=== PATIENT | female | born 1985 | race Caucasian/White ===

== ENCOUNTER → 2017-05-15 | Outpatient (CLI) | payer OTHER | END | disposition home or self-care (01) | LOC: C.LABSPEC 17:58 | PROVIDERS: ATTEND Physician Assistant | DX: J02.9 Acute pharyngitis, unspecified (principal) ==

== ENCOUNTER 2017-05-29 16:52 | Emergency (ER) | payer OTHER ==
[~2017-05-29] VITALS: Ht 157.5 cm; Wt 136.2 kg
[2017-05-29 16:55] VITALS: TEMP 36.5; Ht 157.5 cm; Wt 136.2 kg
[2017-05-29] MEDS ORDERED: ONDANSETRON INJ 2 MG/ML 2 ML VIAL IV STA (17:32)
[2017-05-29] MEDS ORDERED: SODIUM CHLORIDE 0.9% 1000ML 1,000 ML IV STA (17:32)
[2017-05-29 17:39] VITALS: O2SAT 98
[2017-05-29] MEDS ORDERED: ESCI10TA17 PO (17:46)
[2017-05-29] MEDS ORDERED: FLUT0.15 (17:46)
[2017-05-29] MEDS ORDERED: CLIN1CAP51 PO (17:46)
[2017-05-29 18:01] LABS: HEMATOCRIT 41.1 % (37-47); MEAN CELL VOLUME 98.3 fL (80-100); MEAN CORPUSCULAR HEMOGLOBIN 33.5 pg (25-34); MEAN CORPUSCULAR HGB CONC 34.1 g/dl (32-36); MEAN PLATELET VOLUME 11.3 fL (7.4-10.4); PLATELET COUNT 296 K/uL (130-400); RED BLOOD COUNT 4.18 M/uL (4.2-5.4); WHITE BLOOD COUNT 18.35 K/uL (4.8-10.8)
[2017-05-29 18:21] LABS: ALT/SGPT 31 U/L (12-78); AST/SGOT 17 U/L (15-37); BLOOD UREA NITROGEN 16 mg/dl (7-18); CALCIUM 9.3 mg/dl (8.5-10.1); CARBON DIOXIDE 20 mmol/L (21-32); CHLORIDE 108 mmol/L (98-107); CREATININE 1.13 mg/dl (0.60-1.20); GLUCOSE 145 mg/dl (70-99); MAGNESIUM 1.9 mg/dl (1.8-2.4); POTASSIUM 3.3 mmol/L (3.5-5.1); SODIUM 142 mmol/L (136-145)
[2017-05-29 18:22] LABS: BASO % 0.1 %; BASO ABS # 0.01 K/uL (0-0.2); COMPLETE YES; ECHINOCYTES 1+; EOS % 0.5 %; IG% 1.1 %; LYMPH % 19.7 %; LYMPH ABS # 3.61 K/uL (1.2-3.4); MONO % 2.6 %
[2017-05-29 18:24] LABS: ALKALINE PHOSPHATASE 87 U/L (45-117); CKMB/CK RATIO 1.5 (0-3.0)
[2017-05-29 18:28] LABS: PREG INTERNAL NEGATIVE QC NEG CLEAR BACKGROUND; PREG INTERNAL POSITIVE QC POS CONTROL LINE
--- NOTE | 2017-05-29 18:44 | DIAGNOSTIC IMAGING REPORT ---
ABDOMEN 2VIEW W/PA CHEST RTN HISTORY: 31 years-old Female ABDOMINAL PAIN/GI acute generalized abdominal pain COMPARISON: None available TECHNIQUE: PA view of the chest with erect and supine views of the abdomen FINDINGS: Cardiomediastinal and hilar silhouettes are within normal limits. There is no pneumothorax, pleural effusion, focal airspace consolidation or overt pulmonary edema. The bones of the chest are grossly intact. There is no pneumoperitoneum on the upright projection. The bowel gas pattern is nonobstructive. No urolith. Probable phlebolith of the pelvis. IMPRESSION: 1. No acute cardiopulmonary process. 2. Nonobstructive bowel gas pattern. 3. No pneumoperitoneum. The above report was generated using voice recognition software. It may contain grammatical, syntax or spelling errors. Electronically signed by: William So M.D. 05/29/2017 6:42 PM Dictated Date/Time: 05/29/2017 6:41 PM
[2017-05-29] MEDS ORDERED: ONDA4TAB10 SL (19:22)
[2017-05-29] MEDS ORDERED: ONDANSETRON HOME PACK 4MG OD TAB PO ONE (19:30)
[2017-05-29 20:26] VITALS: BP 133/81; PULSE 91; O2SAT 97
--- NOTE | 2017-05-29 20:27 | EMERGENCY ROOM VISIT NOTE ---
History Report prepared by Paul: Ana Russell Under the Supervision of: Dr. Flash Calvin D.O. First contact with patient: 17:18 Chief Complaint: PALPITATIONS Stated Complaint: RAPID HEART RATE;FLUSH;NAUSEA Nursing Triage Summary: patient states she was at work and felt flushed nauseated and was hot and felt her heart palpatating. she states she vomited and has had diarrhea as well. patient is incontient of diarrhea while here. she conitnues to have nausea and generally doesn't feel well History of Present Illness The patient is a 31 year old female who presents to the Emergency Room with complaints of persistent palpitations starting this morning. The patient felt well when she woke up this morning. Before leaving to work, she started to feel a warm sensation over her chest and back that did not last long. On her way to work, she started feeling increasingly flushed and her heart rate increased. She felt very tired and weak. She had tingling down both her arms. Upon arriving at work, she had some dry heaving and diarrhea. She checked her blood pressure and found that it was 119/72. Her heart rate when down and she started to feel better. Around 1500, her symptoms started coming back. She also developed some chest tightness, but no chest pain. Upon arrival to the ED she vomited. She has had 2-3 episodes of diarrhea. She currently does not have any abdominal pain. She feels weak and has some SOB. She feels her heart rate is slowing down. She has never had these symptoms before. She denies any leg pain. 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 She denies any known sick contacts. She has a history of anxiety. She is being watched for high blood pressure. She is on Flonase for allergies. She notes that today was the first time she used Flonase with the [place]esuapro. She denies any history of blood clots. She denies any recent procedures or travel. Source of History: patient Onset: this morning Position: other (global) Quality: other (palpitations) Timing: other (persistent) Associated Symptoms: + SOB, + vomiting, + diarrhea, + fatigue, + weakness, No chest pain, No abdominal pain Note: Pt reports chest tightness. Pt denies leg pain. Review of Systems See HPI for pertinent positives & negatives. A total of 10 systems reviewed and were otherwise negative. Past Medical & Surgical Medical Problems: (1) Anxiety Family History No pertinent family history stated. Social History Smoking Status: Current Every Day Smoker Occupation Status: employed Current/Historical Medications Scheduled Clindamycin HCl (Clindamycin HCl), 1 CAP PO QID Escitalopram (Lexapro), 10 MG PO DAILY Ondasetron Odt (Zofran Odt), 4 MG SL Q6H Miscellaneous Medications Fluticasone Propionate (Nasal) (Flonase Allergy Relief) Allergies Coded Allergies: Amoxicillin (Unverified Allergy, Mild, facial swelling, 05/29/17) Clavulanic Acid (Unverified Allergy, Mild, facial swelling, 05/29/17) Physical Exam Vital Signs Date Time Temp Pulse Resp B/P (MAP) Pulse Ox O2 Delivery O2 Flow Rate FiO2 05/29/17 20:26 91 20 133/81 97 Room Air 05/29/17 19:00 93 20 138/93 96 Room Air 05/29/17 18:02 98 05/29/17 17:58 99 20 128/91 98 Room Air 05/29/17 17:39 98 Room Air 05/29/17 17:13 97 Room Air 05/29/17 16:55 36.5 140 26 115/63 94 Room Air Physical Exam GENERAL: Patient is awake, alert, somewhat anxious appearing but comfortable. EYES: The conjunctivae are clear. The pupils are round and reactive. EARS, NOSE, MOUTH AND THROAT: The nose is without any evidence of any deformity. Mucous membranes are moist tongue is midline NECK: The neck is nontender and supple. RESPIRATORY: Normal respiratory effort is noted there is no evidence of wheezing rhonchi or rales CARDIOVASCULAR: Tachycardic rate noted to auscultation. No definite murmur noted. GASTROINTESTINAL: The abdomen is soft. Bowel sounds are present in all quadrants. Abdomen is nontender MUSCULOSKELETAL/EXTREMITIES: There is no evidence of gross deformity full range of motion is noted in the hips and shoulders SKIN: There is no obvious evidence of any rash. There are no petechiae, pallor or cyanosis noted. NEUROLOGIC: Patient is awake alert and oriented x3 strength is symmetric patellar reflexes are 2+ bilaterally Medical Decision & Procedures ER Provider Diagnostic Interpretation: X-ray results as stated below per interpretation by me and the radiologist. ABDOMEN 2VIEW W/PA CHEST RTN HISTORY: 31 years-old Female ABDOMINAL PAIN/GI acute generalized abdominal pain COMPARISON: None available TECHNIQUE: PA view of the chest with erect and supine views of the abdomen FINDINGS: Cardiomediastinal and hilar silhouettes are within normal limits. There is no pneumothorax, pleural effusion, focal airspace consolidation or overt pulmonary edema. The bones of the chest are grossly intact. There is no pneumoperitoneum on the upright projection. The bowel gas pattern is nonobstructive. No urolith. Probable phlebolith of the pelvis. IMPRESSION: 1. No acute cardiopulmonary process. 2. Nonobstructive bowel gas pattern. 3. No pneumoperitoneum. The above report was generated using voice recognition software. It may contain grammatical, syntax or spelling errors. Electronically signed by: William So M.D. 05/29/2017 6:42 PM Dictated Date/Time: 05/29/2017 6:41 PM Laboratory Results 05/29/17 17:45 Red Blood Count 4.18, Mean Corpuscular Volume 98.3, Mean Corpuscular Hemoglobin 33.5, Mean Corpuscular Hemoglobin Concent 34.1, Mean Platelet Volume 11.3, Neutrophils (%) (Auto) 76.0, Lymphocytes (%) (Auto) 19.7, Monocytes (%) (Auto) 2.6, Eosinophils (%) (Auto) 0.5, Basophils (%) (Auto) 0.1, Neutrophils # (Auto) 13.96, Lymphocytes # (Auto) 3.61, Monocytes # (Auto) 0.47, Eosinophils # (Auto) 0.10, Basophils # (Auto) 0.01 05/29/17 17:45 Test 05/29/17 00:00 05/29/17 17:45 Urine Color YELLOW Urine Appearance CLOUDY (CLEAR) Urine pH 5.0 (4.5-7.5) Urine Specific Bryant 1.025 (1.000-1.030) Urine Protein 2+ (NEG) Urine Glucose (UA) 1+ (NEG) Urine Ketones 1+ (NEG) Urine Occult Blood TRACE (NEG) Urine Nitrite NEG (NEG) Urine Bilirubin NEG (NEG) Urine Urobilinogen NEG (NEG) Urine Leukocyte Esterase NEG (NEG) Urine WBC (Auto) 10-30 /hpf (0-5) Urine RBC (Auto) 0-4 /hpf (0-4) Urine Hyaline Casts (Auto) >30 /lpf (0-5) Urine Epithelial Cells (Auto) >30 /lpf (0-5) Urine Bacteria (Auto) 1+ (NEG) Urine Renal Epithelial Cells 5-10 /lpf (0-5) Urine Pathogenic Casts 5-10 GRANULAR CASTS /lpf (0) Urine Yeast (Auto) (NONE PRSENT) White Blood Count 18.35 K/uL (4.8-10.8) Red Blood Count 4.18 M/uL (4.2-5.4) Hemoglobin 14.0 g/dL (12.0-16.0) Hematocrit 41.1 % (37-47) Mean Corpuscular Volume 98.3 fL (80-100) Mean Corpuscular Hemoglobin 33.5 pg (25-34) Mean Corpuscular Hemoglobin Concent 34.1 g/dl (32-36) Platelet Count 296 K/uL (130-400) Mean Platelet Volume 11.3 fL (7.4-10.4) Neutrophils (%) (Auto) 76.0 % Lymphocytes (%) (Auto) 19.7 % Monocytes (%) (Auto) 2.6 % Eosinophils (%) (Auto) 0.5 % Basophils (%) (Auto) 0.1 % Neutrophils # (Auto) 13.96 K/uL (1.4-6.5) Lymphocytes # (Auto) 3.61 K/uL (1.2-3.4) Monocytes # (Auto) 0.47 K/uL (0.11-0.59) Eosinophils # (Auto) 0.10 K/uL (0-0.5) Basophils # (Auto) 0.01 K/uL (0-0.2) RDW Standard Deviation 44.8 fL (36.4-46.3) RDW Coefficient of Variation 12.5 % (11.5-14.5) Immature Granulocyte % (Auto) 1.1 % Immature Granulocyte # (Auto) 0.20 K/uL (0.00-0.02) Echinocytes 1+ Anion Gap 14.0 mmol/L (3-11) Est Creatinine Clear Calc Drug Dose 95.4 ml/min Estimated GFR () 74.5 Estimated GFR (Non- 64.3 BUN/Creatinine Ratio 14.0 (10-20) Calcium Level 9.3 mg/dl (8.5-10.1) Magnesium Level 1.9 mg/dl (1.8-2.4) Total Bilirubin 0.6 mg/dl (0.2-1) Direct Bilirubin 0.2 mg/dl (0-0.2) Aspartate Amino Transf (AST/SGOT) 17 U/L (15-37) Alanine Aminotransferase (ALT/SGPT) 31 U/L (12-78) Alkaline Phosphatase 87 U/L (45-117) Total Creatine Kinase 47 U/L (26-192) Creatine Kinase MB 0.7 ng/ml (0.5-3.6) Creatine Kinase MB Ratio 1.5 (0-3.0) Troponin I < 0.015 ng/ml (0-0.045) Total Protein 6.9 gm/dl (6.4-8.2) Albumin 3.6 gm/dl (3.4-5.0) Lipase 210 U/L (73-393) Human Chorionic Gonadotropin, Qual NEG (NEG) Laboratory results per my review. Medications Administered Medications (Trade) Dose Ordered Sig/Miri Route Start Time Stop Time Status Last Admin Dose Admin Sodium Chloride 1,000 ml @ 999 mls/hr Q1H1M STAT IV 05/29/17 17:32 05/29/17 18:32 DC 05/29/17 17:57 999 MLS/HR Ondansetron HCl (Zofran Inj) 4 mg NOW STAT IV 05/29/17 17:32 05/29/17 17:33 DC 05/29/17 17:57 4 MG Ondansetron HCl (ZOFRAN ODT 4MG Home Pack) 1 homepack UD ONCE PO 05/29/17 19:30 05/29/17 19:31 DC 05/29/17 20:25 1 HOMEPACK ECG Indication: tachycardia Rate (beats per minute): 122 Rhythm: sinus tachycardia Findings: no ectopy, other (no acute ST segment abnormality) Comparison ECG Date: no prior available ED Course 1730: The patient was evaluated in room A4B. A complete history and physical examination were performed. 1731: Zofran Inj 4 mg IV, NSS 1000 ml @ 999 mls/hr IV. 7: Upon reevaluation, the patient is feeling better. I discussed the results and treatment plan with her. She verbalized agreement of the treatment plan. She was discharged home. 1930: Ondansetron HCl 1 homepack PO. Medical Decision Prior records/ancillary studies reviewed. Triage Nursing notes reviewed. The patient's history was concerning for nausea, vomiting, diarrhea, and abdominal pain. Differential diagnosis: Etiologies such as gastroenteritis, food borne illness, infections, appendicitis , diverticulitis, inflammatory bowel disease, obstruction, GI bleed, biliary pathology, as well as others were entertained. The patient is a 31-year-old female who presented to the emergency department for palpitations anxiety nausea vomiting and diarrhea. The patient did not feel well and when she came to the emergency Department she started having very severe symptoms of nausea. She had one large episode of emesis. She also had a loose bowel movement while she was in the emergency department. The patient's abdominal exam was not consistent with an acute surgical abdomen. She was treated with IV fluids and IV antiemetics. On subsequent reevaluation she was asymptomatic and had no abdominal pain nausea or diarrhea. The patient was found have an elevated white blood cell count but I do not feel this is consistent with an acute surgical abdomen because of her final abdominal exam. I discussed this with the patient. She was encouraged to rest and avoid any strenuous activity. She was encouraged to continue all medications as prescribed and follow-up with her family doctor this week. Otherwise I encouraged her to return to the emergency department immediately if symptoms change worsen or the need arises. Impression Primary Impression: Nausea Additional Impressions: Vomiting Diarrhea Palpitations Scribe Attestation The scribe's documentation has been prepared under my direction and personally reviewed by me in its entirety. I confirm that the note above accurately reflects all work, treatment, procedures, and medical decision making performed by me. Departure Information Dispostion Home / Self-Care Prescriptions Ondasetron Odt (ZOFRAN ODT) 4 Mg Tab 4 MG SL Q6H for Nausea, #15 TAB Prov: Flash Calvin, 05/29/17 Referrals Alysa oCle PA-C (PCP) Forms HOME CARE DOCUMENTATION FORM, IMPORTANT VISIT INFORMATION, WORK / SCHOOL INSTRUCTIONS Patient Instructions ED Vomiting Diarrhea Nonspecific Ad, My [facility] Additional Instructions Continue all medications as prescribed. Drink plenty clear liquids. Call your family in the morning to schedule a follow-up appointment. Return to the emergency apartment immediately if symptoms change worsen or the need arises. Problem Qualifiers Additional Impressions: Vomiting Vomiting type: unspecified Vomiting Intractability: non-intractable Nausea presence: with nausea Qualified Codes: R11.2 - Nausea with vomiting, unspecified Diarrhea Diarrhea type: unspecified type Qualified Codes: R19.7 - Diarrhea, unspecified
[2017-05-29 20:44] LABS: URINE APPEARANCE CLOUDY (CLEAR); URINE BILIRUBIN NEG (NEG); URINE COLOR YELLOW; URINE EPITHELIAL CELL AUTO >30 /lpf (0-5); URINE NITRITE NEG (NEG); URINE SPECIFIC GRAVITY 1.025 (1.000-1.030); UROBILINOGEN NEG (NEG)
[2017-05-29 20:47] LABS: MANUAL MICROSCOPIC REQUIRED? NO; REVIEW REQ? YES
[2017-05-29 20:59] LABS: URINE PATH CASTS 5-10 GRANULAR CASTS /lpf (0)
== END 2017-05-29 20:25 | disposition home or self-care (01) ==
LOC: C.EDB 16:54 → C.EDA 20:25
DX: R00.2 Palpitations (principal); R11.2 Nausea with vomiting, unspecified; R19.7 Diarrhea, unspecified; F41.9 Anxiety disorder, unspecified; F17.210 Nicotine dependence, cigarettes, uncomplicated; Z79.899 Other long term (current) drug therapy

== ENCOUNTER 2017-05-31 09:14 | Emergency (ER) | payer OTHER ==
[~2017-05-31] VITALS: Ht 157.5 cm; Wt 134.0 kg
[~2017-05-31 09:14] MED LIST: CLIN1CAP51 PO; ESCI10TA17 PO; FLUT0.15; ONDA4TAB10 SL
[2017-05-31 09:23] VITALS: TEMP 37; Ht 157.5 cm; Wt 134.0 kg
[2017-05-31] MEDS ORDERED: SODIUM CHLORIDE 0.9% 1000ML 1,000 ML IV STA (09:46)
[2017-05-31] MEDS ORDERED: ONDANSETRON INJ 2 MG/ML 2 ML VIAL IV STA (09:46)
[2017-05-31] MEDS ORDERED: ONDA4TAB46 PO (10:02)
[2017-05-31 10:07] LABS: BASO % 0.1 %; BASO ABS # 0.01 K/uL (0-0.2); COMPLETE YES; EOS % 0.3 %; HEMATOCRIT 37.6 % (37-47); IG% 0.2 %; LYMPH % 11.4 %; LYMPH ABS # 1.97 K/uL (1.2-3.4); MEAN CELL VOLUME 99.2 fL (80-100); MEAN CORPUSCULAR HEMOGLOBIN 33.2 pg (25-34); MEAN CORPUSCULAR HGB CONC 33.5 g/dl (32-36); MEAN PLATELET VOLUME 10.9 fL (7.4-10.4); MONO % 9.5 %; NEUT % 78.5 %; PLATELET COUNT 251 K/uL (130-400); RED BLOOD COUNT 3.79 M/uL (4.2-5.4); WHITE BLOOD COUNT 17.33 K/uL (4.8-10.8)
[2017-05-31 10:38] LABS: ALT/SGPT 26 U/L (12-78); BLOOD UREA NITROGEN 7 mg/dl (7-18); BUN/CREATININE RATIO 8.2 (10-20); CALCIUM 8.9 mg/dl (8.5-10.1); CARBON DIOXIDE 26 mmol/L (21-32); CHLORIDE 109 mmol/L (98-107); CREATININE 0.89 mg/dl (0.60-1.20); GLUCOSE 97 mg/dl (70-99); POTASSIUM 3.5 mmol/L (3.5-5.1); SODIUM 141 mmol/L (136-145)
[2017-05-31 10:50] LABS: ALKALINE PHOSPHATASE 77 U/L (45-117); AST/SGOT 9 U/L (15-37)
[2017-05-31 11:14] LABS: LYME DISEASE AB IGG NEG (NEG); LYME DISEASE AB IGM NEG (NEG)
[2017-05-31 11:25] LABS: URINE APPEARANCE CLEAR (CLEAR); URINE BILIRUBIN NEG (NEG); URINE COLOR YELLOW; URINE NITRITE NEG (NEG); UROBILINOGEN NEG (NEG)
[2017-05-31 11:26] LABS: MANUAL MICROSCOPIC REQUIRED? NO; REVIEW REQ? NO
[2017-05-31 15:00] VITALS: BP 131/74; PULSE 103; O2SAT 98
--- NOTE | 2017-05-31 17:06 | EMERGENCY ROOM VISIT NOTE ---
History Report prepared by Paul: Keenan Mays Under the Supervision of: Dr. Samuel Wilkins M.D. First contact with patient: 09:34 Chief Complaint: REFERRED BY DOCTOR Stated Complaint: SENT BY PCP History of Present Illness The patient is a 31 year old female who presents to the Emergency Room with complaints of multiple episodes of vomiting that began two days ago. She was seen in the ER at that time for nausea, vomiting, hot flashes, chills, diarrhea , and an increased heart rate. Her laboratory results showed an elevated white blood cell count. She was discharged with a follow up appointment with her PCP. Although she feels mildly better, her symptoms have persisted since. She has been eating but is having a hard time keeping up with her fluids. She also notes that she has been experience a strange itching sensation to the palms of her hands and bottoms of her feet. She was taken off of Lexapro three days ago and has not taken any since then. She has a past medical history of a pilonidal cyst surgery. Pt denies LOC, headache, fevers, visual changes, neck pain, chest pain, breathing difficulties, abdominal pain, back pain, melena, hematochezia, urinary symptoms, numbness, weakness, lymphadenopathy, rash, or other complaints. About 1.5 weeks ago, she was treated for strep throat with Clindamycin. Source of History: patient Onset: 2 days ago Position: other (GI) Symptom Intensity: Multiple episodes Quality: other (Vomiting) Timing: intermittent Associated Symptoms: + chills, + nausea, + diarrhea Note: She is also having itching to her hands and feet with an elevated heart rate. She notes that she has intermittent hot flashes. Review of Systems See HPI for pertinent positives and negatives. A total of ten systems were reviewed and were otherwise negative. Past Medical & Surgical Medical Problems: (1) Anxiety (2) Pilonidal cyst Family History Cancer Diabetes mellitus Heart disease Kidney disease Kidney stones Social History Smoking Status: Current Every Day Smoker Smokeless Tobacco Use: No Alcohol Use: occasionally Drug Use: none Marital Status: Housing Status: lives with family Occupation Status: employed Current/Historical Medications Scheduled Clindamycin HCl (Clindamycin HCl), 1 CAP PO QID Escitalopram (Lexapro), 10 MG PO DAILY Scheduled PRN Ondansetron Hcl (Zofran), 4 MG PO Q6H PRN for Nausea Miscellaneous Medications Fluticasone Propionate (Nasal) (Flonase Allergy Relief) Allergies Coded Allergies: Amoxicillin (Unverified Allergy, Mild, facial swelling, 05/31/17) Clavulanic Acid (Unverified Allergy, Mild, facial swelling, 05/31/17) Physical Exam Vital Signs Date Time Temp Pulse Resp B/P (MAP) Pulse Ox O2 Delivery O2 Flow Rate FiO2 05/31/17 15:00 103 18 131/74 98 Room Air 05/31/17 14:20 100 05/31/17 13:11 100 18 126/64 98 Room Air 05/31/17 10:47 92 18 160/101 98 Room Air 05/31/17 09:57 96 05/31/17 09:56 93 129/91 104 144/96 106 143/89 05/31/17 09:23 37.0 105 20 147/83 95 Room Air Physical Exam GENERAL: Awake, alert, well-appearing, in no distress HENT: Normocephalic, atraumatic. Oropharynx unremarkable. EYES: Normal conjunctiva. Sclera non-icteric. NECK: Supple. No nuchal rigidity. FROM. No JVD. RESPIRATORY: Clear to auscultation. CARDIAC: Regular rate, normal rhythm. Extremities warm and well perfused. Pulses equal. ABDOMEN: Soft, non-distended. No tenderness to palpation. No rebound or guarding. No masses. RECTAL: Deferred. MUSCULOSKELETAL: Chest examination reveals no tenderness. The back is symmetrical on inspection without obvious abnormality. There is no CVA tenderness to palpation. No joint edema. LOWER EXTREMITIES: Calves are equal size bilaterally and non-tender. No edema. No discoloration. NEURO: Normal sensorium. No sensory or motor deficits noted. SKIN: No rash or jaundice noted. Medical Decision & Procedures Laboratory Results 05/31/17 09:45 Red Blood Count 3.79, Mean Corpuscular Volume 99.2, Mean Corpuscular Hemoglobin 33.2, Mean Corpuscular Hemoglobin Concent 33.5, Mean Platelet Volume 10.9, Neutrophils (%) (Auto) 78.5, Lymphocytes (%) (Auto) 11.4, Monocytes (%) (Auto) 9.5, Eosinophils (%) (Auto) 0.3, Basophils (%) (Auto) 0.1, Neutrophils # (Auto) 13.61, Lymphocytes # (Auto) 1.97, Monocytes # (Auto) 1.64, Eosinophils # (Auto) 0.06, Basophils # (Auto) 0.01 05/31/17 09:45 Test 05/31/17 09:45 05/31/17 10:50 White Blood Count 17.33 K/uL (4.8-10.8) Red Blood Count 3.79 M/uL (4.2-5.4) Hemoglobin 12.6 g/dL (12.0-16.0) Hematocrit 37.6 % (37-47) Mean Corpuscular Volume 99.2 fL (80-100) Mean Corpuscular Hemoglobin 33.2 pg (25-34) Mean Corpuscular Hemoglobin Concent 33.5 g/dl (32-36) Platelet Count 251 K/uL (130-400) Mean Platelet Volume 10.9 fL (7.4-10.4) Neutrophils (%) (Auto) 78.5 % Lymphocytes (%) (Auto) 11.4 % Monocytes (%) (Auto) 9.5 % Eosinophils (%) (Auto) 0.3 % Basophils (%) (Auto) 0.1 % Neutrophils # (Auto) 13.61 K/uL (1.4-6.5) Lymphocytes # (Auto) 1.97 K/uL (1.2-3.4) Monocytes # (Auto) 1.64 K/uL (0.11-0.59) Eosinophils # (Auto) 0.06 K/uL (0-0.5) Basophils # (Auto) 0.01 K/uL (0-0.2) RDW Standard Deviation 46.7 fL (36.4-46.3) RDW Coefficient of Variation 12.9 % (11.5-14.5) Immature Granulocyte % (Auto) 0.2 % Immature Granulocyte # (Auto) 0.04 K/uL (0.00-0.02) Anion Gap 6.0 mmol/L (3-11) Est Creatinine Clear Calc Drug Dose 119.9 ml/min Estimated GFR () 99.4 Estimated GFR (Non- 85.8 BUN/Creatinine Ratio 8.2 (10-20) Calcium Level 8.9 mg/dl (8.5-10.1) Magnesium Level 2.0 mg/dl (1.8-2.4) Total Bilirubin 0.6 mg/dl (0.2-1) Direct Bilirubin 0.1 mg/dl (0-0.2) Aspartate Amino Transf (AST/SGOT) 9 U/L (15-37) Alanine Aminotransferase (ALT/SGPT) 26 U/L (12-78) Alkaline Phosphatase 77 U/L (45-117) Troponin I < 0.015 ng/ml (0-0.045) Total Protein 7.0 gm/dl (6.4-8.2) Albumin 3.4 gm/dl (3.4-5.0) Lipase 94 U/L (73-393) Thyroid Stimulating Hormone (TSH) 1.210 uIu/ml (0.300-4.500) Lyme Disease IgG Antibody NEG (NEG) Lyme Disease IgM Antibody NEG (NEG) Urine Color YELLOW Urine Appearance CLEAR (CLEAR) Urine pH 7.0 (4.5-7.5) Urine Specific [place] 1.010 (1.000-1.030) Urine Protein NEG (NEG) Urine Glucose (UA) NEG (NEG) Urine Ketones NEG (NEG) Urine Occult Blood NEG (NEG) Urine Nitrite NEG (NEG) Urine Bilirubin NEG (NEG) Urine Urobilinogen NEG (NEG) Urine Leukocyte Esterase NEG (NEG) Date/Time Source Procedure Growth Status 05/31/17 10:55 Stool C.difficile Toxin B Gene (PCR) - Final No C. difficile toxin B gene detected Complete Laboratory results reviewed by me Medications Administered Medications (Trade) Dose Ordered Sig/Miri Route Start Time Stop Time Status Last Admin Dose Admin Sodium Chloride 1,000 ml @ 999 mls/hr Q1H1M STAT IV 05/31/17 09:46 05/31/17 10:46 DC 05/31/17 10:01 999 MLS/HR Ondansetron HCl (Zofran Inj) 4 mg NOW STAT IV 05/31/17 09:46 05/31/17 09:49 DC 05/31/17 10:01 4 MG ECG Indication: nausea, vomiting Rate (beats per minute): 100 Rhythm: normal sinus Findings: no acute ischemic change, no ectopy ED Course 0934: The patient was evaluated in room C1B. A complete history and physical exam was performed. 0946: Ordered Zofran Inj 4 mg IV, Sodium Chloride 1000 ml @ 999 mls/hr IV 1520: I reevaluated the patient. Discussed results and discharge instructions: She verbalized understanding and agreement. The patient is ready for discharge. Medical Decision Prior records/ancillary studies reviewed. Triage Nursing notes reviewed and agree them. The patient's history was concerning for nausea, vomiting, diarrhea, and flushing. Differential diagnosis: Etiologies such as infectious diarrhea, C. difficile infection, gastroenteritis , food borne illness, infections, appendicitis, diverticulitis, inflammatory bowel disease, GI bleed, biliary pathology, carcinoid syndrome, medication side effect, as well as others were entertained. Physical examination findings: As above. Borderline tachycardia but the patient looks well. ER treatment provided: IV hydration 1 L NSS. Zofran 4 mg IV On reassessment the patient felt better. Patient was tolerating p.o. intake. Diagnostics interpretation by me: ECG: Normal. The labs revealed a moderate leukocytosis but decreased from prior CBCs. Electrolytes unremarkable. Lyme titer negative. TSH negative. Magnesium, LFTs and lipase negative. Stool study revealed no evidence of C. difficile. Stool culture pending. Imaging studies: Deferred as the patient has no pain. The patient is doing well. She has some borderline elevated heart rates. She is not orthostatic. She does not have any hives or the findings to consider allergic reaction. She had vomiting and diarrhea which would fit with an enteritis type of syndrome. Reaction to the recently started Lexapro would be unlikely and she has not taken any in 3 days. Carcinoid issues would also be unlikely given the history. She can follow up with her primary for 24 hour urine testing if symptoms do not continue to improve and resolve. The patient has no abdominal pain or hematochezia. CT imaging was felt to be unnecessary and I did discuss this with the patient. She was in agreement. She was recently on clindamycin and therefore stool was tested for C. difficile and was negative. The patient was observed in the emergency department for many hours and had no dysrhythmias. I discussed conservative management with her urine she 'll follow-up closely as an outpatient. The patient was in agreement.I gave my usual and customary discussion regarding this issue. If she worsens in any way she will be back. By the evaluation outlined above emergent etiologies such as appendicitis, diverticulitis, mesenteric ischemia, aortic pathology, inflammatory bowel disease, renal colic, PUD, biliary pathology, UTI, as well as others were deemed relatively unlikely. The patient was informed about the findings as listed above. All questions were answered and she was pleased with the treatment. Return instructions were outlined and the patient was discharged in stable condition. Referral: The patient was referred to her primary care physician for follow-up in 3 days for a recheck of the current condition. Medication Reconcilliation Current Medication List: was personally reviewed by me Blood Pressure Screening Patient's blood pressure: Elevated blood pressure Blood pressure disposition: Elevated BP felt to be situational Impression Primary Impression: Diarrheal disease Additional Impressions: Palpitations Facial flushing Scribe Attestation The scribe's documentation has been prepared under my direction and personally reviewed by me in its entirety. I confirm that the note above accurately reflects all work, treatment, procedures, and medical decision making performed by me. Departure Information Dispostion Home / Self-Care Referrals Alysa Cole .JESSE (PCP) Forms HOME CARE DOCUMENTATION FORM, IMPORTANT VISIT INFORMATION, WORK / SCHOOL INSTRUCTIONS Patient Instructions My [facility] Additional Instructions Follow-up with your primary physician on Saturday. If you're still experiencing the flushing sensations and diarrhea discuss further testing regarding carcinoid like syndrome with her. Testing could start with 24 hour monitoring of urine serotonin excretion. Imaging may be necessary. Continue current medication but do not use any additional Lexapro. Return to the ER for worsening flushing/diarrhea, passing out, abdominal pain, vomiting, fevers, bloody stools, or as needed. Problem Qualifiers
== END 2017-05-31 15:09 | disposition home or self-care (01) ==
LOC: C.EDB 09:17 → C.EDC 15:09
DX: R19.7 Diarrhea, unspecified (principal); R00.2 Palpitations; F41.9 Anxiety disorder, unspecified; Z80.9 Family history of malignant neoplasm, unspecified; Z83.3 Family history of diabetes mellitus; Z84.1 Family history of disorders of kidney and ureter; F17.210 Nicotine dependence, cigarettes, uncomplicated; Z79.899 Other long term (current) drug therapy

== ENCOUNTER → 2017-07-22 | Outpatient (CLI) | payer OTHER ==
[~2017-07-22] MED LIST changes: -ONDA4TAB10 SL; +ONDA4TAB46 PO
== END | disposition home or self-care (01) ==
LOC: C.LABSPEC 15:15
PROVIDERS: ATTEND Family Medicine
DX: J02.9 Acute pharyngitis, unspecified (principal)

== ENCOUNTER → 2017-11-19 | Outpatient (CLI) | payer OTHER | END | disposition home or self-care (01) | LOC: C.LAB1850 13:13 | PROVIDERS: ATTEND Physician Assistant | DX: R82.99 Other abnormal findings in urine (principal) ==

== ENCOUNTER → 2018-02-03 | Outpatient (CLI) | payer OTHER ==
[2018-02-03 15:09] LABS: BASO % 0.2 %; BASO ABS # 0.02 K/uL (0-0.2); EOS % 2.4 %; EOS ABS # 0.24 K/uL (0-0.5); HEMATOCRIT 43.7 % (37-47); IG# 0.02 K/uL (0.00-0.02); LYMPH % 36.1 %; LYMPH ABS # 3.64 K/uL (1.2-3.4); MEAN CELL VOLUME 97.3 fL (80-100); MEAN CORPUSCULAR HEMOGLOBIN 33.4 pg (25-34); MEAN CORPUSCULAR HGB CONC 34.3 g/dl (32-36); MEAN PLATELET VOLUME 11.5 fL (7.4-10.4); MONO % 10.5 %; MONO ABS # 1.06 K/uL (0.11-0.59); NEUT % 50.6 %; NEUT ABS # 5.09 K/uL (1.4-6.5); PLATELET COUNT 245 K/uL (130-400); RED CELL DISTRIBUTION WIDTH CV 12.7 % (11.5-14.5); RED CELL DISTRIBUTION WIDTH SD 44.7 fL (36.4-46.3); WHITE BLOOD COUNT 10.07 K/uL (4.8-10.8)
[2018-02-03 15:46] LABS: BLOOD UREA NITROGEN 16 mg/dl (7-18); CARBON DIOXIDE 27 mmol/L (21-32); GLUCOSE 80 mg/dl (70-99); SODIUM 142 mmol/L (136-145)
[2018-02-04 06:25] LABS: HEMOGLOBIN A1C 5.3 % (4.5-5.6)
== END | disposition home or self-care (01) ==
LOC: C.LAB1850 14:03
PROVIDERS: ATTEND Family Medicine
DX: R55 Syncope and collapse (principal); R42 Dizziness and giddiness